=== PATIENT | female | born 1945 ===

== ENCOUNTER 2021-01-30 08:46 | Outpatient (CLI) | payer OTHER | END 2021-01-30 11:03 | disposition home or self-care (01) | LOC: SONOGRAMA 08:46 | PROVIDERS: ATTEND Pathology Anatomic Pathology & Clinical Pathology | DX: E04.1 Nontoxic single thyroid nodule (principal) ==

== ENCOUNTER 2021-09-29 08:05 | Outpatient (CLI) | payer OTHER | END 2021-09-29 08:07 | disposition home or self-care (01) | LOC: SONOGRAMA 08:05 | PROVIDERS: ATTEND Pathology Anatomic Pathology & Clinical Pathology | DX: E04.1 Nontoxic single thyroid nodule (principal) ==